=== PATIENT | male | born 1970 | race Two or more races ===

== ENCOUNTER 2025-03-14 06:54 | Inpatient (IN) | payer SELFPAY ==
[2025-03-14] VITALS (29 sets, daily range): BP systolic 81–113; BP diastolic 46–83; PULSE 53–88; RESP 12–25; TEMP 36–37; O2SAT 91–97; BMI 36.3
--- NOTE | ~2025-03-14 | US_ITS ---
Examination: US abdomen complete Clinical History: Abnormal LFTs, ELEVATED CREATININE . Comparison: None Technique: Complete abdominal sonography Findings: Liver: Enlarged. Echogenic. No intrahepatic biliary ductal dilatation. Normal hepatopedal flow main portal vein. Hepatic veins bidirectional waveforms. Pericholecystic focal fatty sparing Common duct: Normal caliber, 5 mm. Gallbladder: Probable stones. Wall thickening. No pericholecystic fluid. Negative sonographic Bauer's sign. Spleen: Mildly enlarged. Pancreas: Obscured by bowel gas. Kidneys: Unremarkable. Aorta: No aneurysmal dilatation. Retrohepatic IVC: Unremarkable. IMPRESSION: 1. Nonspecific gallbladder wall thickening in the presence of gallstones but lack of Bauer's sign. If clinical ambiguity for cholecystitis, can consider HIDA scan. 2. Hepatomegaly, with steatosis. Reviewed, dictated and finalized at location R. FIC ENGINEER IMPRESSION: 1. Nonspecific gallbladder wall thickening in the presence of gallstones but l ack of Bauer's sign. If clinical ambiguity for cholecystitis, can consider HID A scan. 2. Hepatomegaly, with steatosis.
--- NOTE | ~2025-03-14 | XR_ITS ---
Examination: XR chest 1V portable Clinical History: STEMI Comparison: STEMI Technique: Portable AP Findings: Cardiomegaly. Diffuse airspace opacities right lung. No acute bony abnormality. IMPRESSION: 1. Right lung unilateral interstitial pulmonary edema and/or airspace disease. 2. Cardiomegaly. Reviewed, dictated and finalized at location R. LEVEL DESIGNER
--- NOTE | 2025-03-14 07:13 | ECG_ITS ---
Test Date: 2025-03-14 07:00:27 Measurements Intervals [place] Rate: 75 P: 213 MS: 222 QRS: -56 QRSD: 110 T: 113 QT: 421 QTc: 471 Interpretive Statements SINUS RHYTHM WITH SECOND DEGREE AV BLOCK, TYPE I INCOMPLETE RIGHT BUNDLE BRANCH BLOCK LEFT VENTRICULAR HYPERTROPHY AND ST-T CHANGE ANTEROLATERAL INFARCT, AGE INDETERMINATE INFERIOR ST ELEVTION IN INFERIOR LEADS- CONSIDER ACUTE INFARCT OR MYOCARDIAL ANEURYSM BASELINE ARTIFACT- I, II, AVR, AVL, V4-V6 ABNORMAL ECG No previous ECG available for comparison Electronically Signed On 03-14-2025 08:35:36 BUTCHER SUPERVISOR by Nhan Matson D.O.
[2025-03-14] MEDS: SODIUM CHLORIDE 0.9% IV 1,000 ML 999 ML (07:18)
--- NOTE | 2025-03-14 07:20 | PC.NURSE ---
patient received heparin bolus 5000 units, verbal order received from Gris NOVAK at bedside
[2025-03-14 07:21] LABS: Hematocrit 49.5 % (42.0-52.0); Hemoglobin 17.0 g/dL (14.0-18.0); Immature Granulocyte Percent A 0.4 % (0-0.5); Lymphocytes Absolute Auto 1.83 K/mm3 (0.9-3.2); Mean Corpuscular HGB Conc 34.3 g/dl (32-36); Mean Corpuscular Hemoglobin 32.1 pg (26-34); Mean Corpuscular Volume 93.4 fl (80-100); Nucleated Red Blood Cells Absolute Auto 0.000 K/mm3 (0.0-0.012); Nucleated Red Blood Cells Perc 0.0 % (0.0-0.2); Platelet Count Result 144 k/mm3 (150-375); Red Blood Count 5.30 M/mm3 (4.6-6.20); White Blood Count 13.6 K/mm3 (4.5-10.0)
[2025-03-14 07:38] LABS: Alanine Aminotransferase 83 U/L (6-50); Albumin Level 4.2 g/dL (3.5-5.1); Alkaline Phosphatase 76 U/L (38-126); Anion Gap 9 mmol/L (4-12); Aspartate Amino Transferase 231 U/L (17-59); Bilirubin,Total 2.1 mg/dL (0.2-1.3); Blood Urea Nitrogen 25 mg/dL (9-20); Calcium 8.9 mg/dL (8.4-10.2); Carbon Dioxide 24 mmol/L (22-30); Chloride 101 mmol/L (98-107); Estimated CRCL calculation 71 ml/min; Estimated Glomerular Filt Rate 57; Glucose 136 mg/dL (65-110); Potassium 3.7 mmol/L (3.4-5.0); Sodium 134 mmol/L (137-145); Total Protein 7.7 g/dL (6.3-8.2)
[2025-03-14 07:40] LABS: INR 1.2; Prothrombin Time 15.1 Seconds (11.1-14.7)
[2025-03-14 07:50] LABS: NT Pro B Type Natriuretic Pept 1600 pg/mL (19.9-100); Troponin I 33.200 ng/mL (0.000-0.034)
--- NOTE | 2025-03-14 07:51 | ED_ITS ---
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 denies having any shortness of breath. He is on aspirin therapy. Not quite sure with a has CAD. Initial report given by EMS that he had been seen in Hospital in [place] for [place]. patient however states that he has not been any hospital . MD complaint: chest pain Onset (ago): hour(s) (1) Timing of current episode: constant Onset: during rest Pain location: substernal Pain radiation: none Severity: moderate Quality: heaviness Relieving factors: nothing Exacerbating factors: nothing Treatment prior to arrival: none Risk Factors Coronary artery disease risk factors: none Related Data Allergies Allergy/AdvReac Type Severity Reaction Status Date / Time No Known Allergies Allergy Verified 03/14/25 07:08 Review of Systems 2 Review of Systems: All systems reviewed & are unremarkable except as noted in HPI and below Constitutional: Constitutional: Reports no additional constitutional complaints Eyes: Eyes: Reports no additional eye complaints ENT: Reports system reviewed and no additional complaints, except as documented Cardiovascular: Cardiovascular: Reports as per HPI Respiratory: Respiratory: Reports no additional respiratory complaints Gastrointestinal: Gastrointestinal: Reports no additional gastrointestinal complaints Musculoskeletal: Musculoskeletal: Reports no additional musculoskeletal complaints Neurologic: Reports system reviewed and no additional complaints, except as documented Exam 2 Narrative: GENERAL: Well-appearing, well-nourished, and in no acute distress. HEAD: Normocephalic, atraumatic. EYES: PERRLA and EOMI. ENT: Nares clear, no rhinorrhea or epistaxis. Mucous membranes moist. NECK: Supple. CHEST: Clear to auscultation. No respiratory distress. HEART: Regular rate and rhythm. No murmur heard. Normal peripheral pulses. ABDOMEN: Soft, nontender, nondistended, normal active bowel sounds. EXTREMITIES: Normal range of motion. No edema. SKIN: Warm, dry, no rash. NEURO: No focal deficits. Alert and oriented x3. PSYCH: Normal mood and affect. Course Course Emergency Course: soon after his arrival EKG was done showed acute inferior wall WA , research test engine operator was notified. Did give him IV fluids and heparin. Vital Signs Vital signs: Vital Signs Pulse Rate 88 03/14/25 07:08 Respiratory Rate 18 03/14/25 07:08 Blood Pressure 112/79 03/14/25 07:08 Pulse Oximetry 97 03/14/25 07:08 Pulse Rate 76 03/14/25 07:34 Respiratory Rate 20 03/14/25 07:34 Blood Pressure 113/79 03/14/25 07:34 Pulse Oximetry 97 03/14/25 07:34 MDM Differential Diagnosis Differential Diagnosis: WA Lab Data 03/14/25 07:15 03/14/25 07:15 Labs: Lab Results 03/14/25 Range/Units 07:15 WBC 13.6 H (4.5-10.0) K/mm3 RBC 5.30 (4.6-6.20) M/mm3 Hgb 17.0 (14.0-18.0) g/dL Hct 49.5 (42.0-52.0) % MCV 93.4 (80-100) fl MCH 32.1 (26-34) pg MCHC 34.3 (32-36) g/dl RDW 12.7 (11.5-14.5) % Plt Count 144 L (150-375) k/mm3 MPV 11.3 H (7.4-10.4) fl Immature Gran % (Auto) 0.4 (0-0.5) % Neut % (Auto) 75.0 H (45.5-73.1) % Lymph % (Auto) 13.4 L (18.3-44.2) % [place] % (Auto) 10.8 H (2.6-8.5) % Eos % (Auto) 0.1 (0-4.4) % Baso % (Auto) 0.3 (0.2-1.2) % Lymph # (Auto) 1.83 (0.9-3.2) K/mm3 [place] # (Auto) 1.5 H (0.1-0.6) K/mm3 Eos # (Auto) 0.0 (0-0.3) K/mm3 Baso # (Auto) 0.0 (0.0-0.1) K/mm3 Abs Immat Gran (auto) 0.05 H (0.00-0.031) K/mm3 Absolute Neuts (auto) 10.2 H (1.3-6.7) K/mm3 Absolute Nucleated RBC 0.000 (0.0-0.012) K/mm3 Nucleated RBC % 0.0 (0.0-0.2) % PT 15.1 H (11.1-14.7) Seconds INR 1.2 Sodium 134 L (137-145) mmol/L Potassium 3.7 (3.4-5.0) mmol/L Chloride 101 (98-107) mmol/L Carbon Dioxide 24 (22-30) mmol/L Anion Gap 9 (4-12) mmol/L BUN 25 H (9-20) mg/dL Creatinine 1.31 H (0.7-1.3) mg/dL Estim Creat Clear Calc 71 ml/min Estimated GFR 57 L (59 - ) Glucose 136 H (65-110) mg/dL Calcium 8.9 (8.4-10.2) mg/dL Total Bilirubin 2.1 H (0.2-1.3) mg/dL AST 231 H (17-59) U/L ALT 83 H (6-50) U/L Alkaline Phosphatase 76 (38-126) U/L Troponin I 33.200 H* (0.000-0.034) ng/mL NT-Pro-B Natriuret Pep 1600 H (19.9-100) pg/mL Total Protein 7.7 (6.3-8.2) g/dL Albumin 4.2 (3.5-5.1) g/dL ECG Data EKG #1: ECG completion date: 03/14/25 normal rate (76) and ST elevation (acute inferior wall ) Critical Care Time Critical Care Time Time Type: Continuous Initial evaluation, discuss w/ involved parties, attempting to gather old records: 10 minutes Documenting medical record: 10 minutes Review of results (EKG's, labs, imaging): 10 minutes Total Critical Care Time: 30 Discharge Plan Discharge Clinical Impression: ST elevation (STEMI) myocardial infarction Patient Disposition: Still a Patient Condition: Stable Patient Language: Nepali Follow-up/Referrals: PHYSICIAN,SENIOR TECHNOLOGIST [Primary Care Provider, Internal Medicine]
[2025-03-14] MEDS: EPTIFIBATIDE 0.75 MG/ML 75 MG/100 ML VIAL 18.06 MG IV CONT ×3 (10:25→19:05)
--- NOTE | 2025-03-14 10:25 | ADMGEN ---
This patient, Cony Winslow, was admitted to Intensive Care Unit-9 @ 1025. Patient/family oriented to hospital policies and general routines including ID bracelet, bed and alarms, visiting hours, pain management, procedures, bathroom and other care routines, personal items, smoking policy, room service/diet, and visiting hours. Information on how to activate the Rapid Response Team has been discussed. Patient/Family are encouraged to report perceived risks to care and to ask questions if they do not understand what they are told or what they should do.
--- NOTE | 2025-03-14 10:27 | WPDCARDPROC ---
Cardiac Cath Procedure Note Date of procedure:: 03/14/25 Performing physician:: Richa Redd MD Indication:: CATHETERIZATION LABORATORY REPORT Procedure Date: 03/14/2025 Anesthesia: Versed and Fentanyl were ordered and given in my presence at 07:57, procedure ended at 09:54. Supervision of nurse monitored moderate sedation with Versed and Fentanyl was provided for 117 minutes. Fentanyl 200mcg Versed 2mg Pre-op Diagnosis: Chest pain off and on since Saturday and constant since last night Inferior STEMI Post-op Diagnosis: Inferior STEMI s/p aspiration thrombectomy with Penumbra and IVUS guided PCI to proximal RCA with 3.0mm x 12mm, 3.0mm x 38mm, and 4.0mm x 15mm Medtronic Jose Luis Sebastian DAGOBERTO overlapping stents from distal to proximal post dilated with 4.0mm x 15mm NC balloon to high MAXIMO. Procedure(s): Left heart catheterization with coronary angiography PCI to proximal RCA Access Site: Right radial artery Brief History and Clinical Indications: All risks, benefits and alternatives to left heart catheterization with or without percutaneous coronary intervention was discussed at length with the patient. Risk of complications including but not limited to bleeding, infection, arrhythmia, stroke, worsening kidney function, blood loss, groin hematoma, limb loss, emergency coronary artery bypass grafting, and even were discussed with the patient and all questions were answered. The patient understood and wished to proceed. Time out called, patient name, date of , medical record number, allergies, procedure performed, identify [facility], patient and staff member concurred with accurate data, procedure carried on. Findings: LEFT HEART CATHETERIZATION FINDINGS: 1. Left main: The left main coronary artery is widely patent without any significant obstructive disease. 2. Left anterior descending: The LAD and the diagonal branches have mild luminal irregularities without any significant obstructive angiographic disease. 3. Left circumflex: The left circumflex artery and the main marginal branches have mild luminal irregularities without any significant obstructive angiographic disease. 4. Right coronary artery: The proximal RCA has 100%thrombotic stenosis with CARMEN 0 flow in the distal vessel. This is the culprit lesion for inferior STEMI. The distal vessel is seen filling on L injections indicating some collateral presence. 5. Left ventricle: A. End-diastolic pressure 16 mmHg. B. LV gram deferred. C. No significant gradient across aortic valve on catheter pullback. 6. Opening AO pressure 95/82/89 and closing AO pressure 112/88/81mm Hg. Description of Procedure: Informed consent signed and placed in the chart. Patient transferred to lift slab operator room. Prepped and draped in usual sterile fashion. 2% lidocaine injected subcutaneously in right wrist area. 22-gauge venipuncture catheter used to access the right radial artery with the Seldinger technique. 6-FR slender sheath placed in right radial artery. Nitroglycerin 200mcg and Heparin 5000U was given intraarterial through the sheath. J wire advanced under fluoroscopy 5F JL 3.5 diagnostic catheter engaged Left Main Coronary Artery. 6F JR4 guide catheter engaged Right Coronary Artery Multiple orthogonal angiogram obtained and reviewed 6F JR4 guide catheter crossed aortic valve to obtain LVEDP, LV angiogram deferred. Hemostasis was achieved by application of TR band. Procedure Description for PCI: Heparin was used for anticoagulation (ACT maintained above 250) Patient loaded with heparin at 70 units/kg. 6F JR 4guide catheter was used to intubate the RCA 0.014 Runthrough coronary wire was passed in to the distal RCA initially positioned in the distal RV marginal branch but was pushing the guide back A second Runthrough coronary wire was passed in to the distal RPL branch for increased guide support A 6F guideliner was advanced to the ostium of the RCA for increased guide support The lesion was pre-dilated with a 2.0mm x 15mm, 3.0mm x 15mm, and 3.5mm x 15mm compliant balloons inflated to high MAXIMO with only minimal return of distal flow A [employer] [place] IVUS catheter was advanced into the RCA to evaluate lesion characteristics and vessel size. This showed profuse thrombus in the proximal and mid RCA and diffused 70-80% stenosis in the mid and proximal RCA A Penumbra CAT RX catheter was advanced beyond the lesion and pulled back to aspirate clot. This was performed 4 times after which CARMEN II flow was noted in the distal RCA IV fluids were administered for hypotension with SBP to the 80s-90s range Intracoronary Integrilin bolus x 2 was administered and a drip was started Intracoronary epinephrine was administered for no reflow Intracoronary nipride 100mcg was administered for no reflow Further pre-dilations were performed again with 3.5mm x 15mm compliant balloon inflated to high MAXIMO A 3.0mm x 12mm, 3.0mm x 38mm, and 4.0mm x 15mm Medtronic [place] Sebastian DAGOBERTO overlapping stents were deployed from distal to proximal RCA The stent was post-dilated with a 4.0mm x 15mm NC balloon to high MAXIMO Intracoronary NTG was administered Patient was hypotensive to the 70s requiring 100mcg of Phenylephrine Follow-up angiograms showed an excellent result Coronary wire and guide-catheter were removed Pre-procedure - CARMEN 3 flow Post-procedure - CARMEN 3 flow No angiographic complications identified. Assessment: Inferior STEMI s/p aspiration thrombectomy with Penumbra and IVUS guided PCI to proximal RCA with 3.0mm x 12mm, 3.0mm x 38mm, and 4.0mm x 15mm Medtronic Jose Luis Sebastian DAGOBERTO overlapping stents from distal to proximal post dilated with 4.0mm x 15mm NC balloon to high MAXIMO. Hypotension treated with IV fluids and 1 dose of 100mcg phenylephrine Post Operative Condition: Stable No significant blood loss Disposition: ICU Plan: The patient will be monitored in the recovery area. Ticagrelor 180mg bolus administered in the lab. Continue DAPT with asa 81 mg daily and ticagrelor 90 mg BID for 1 year followed by ASA indefinitely. TTE Continue IV fluids and avoid hypotension Monitor on telemetry. Check and replace electrolytes to keep K>4 and Mg>2. Continue heparin and Integrilin after removal of TR band for 12 hours given profuse thrombus. The above findings were discussed with the ICU physician and referring ER physician. Continue aggressive medical therapy and risk factor modification.
--- NOTE | 2025-03-14 10:28 | P.CONIN_ITS ---
Assessment and Plan Assessment and plan (1) ST elevation (STEMI) myocardial infarction: Qualifiers: Involved coronary artery: other inferior wall coronary artery Qualified Code(s): I21.19 - ST elevation (STEMI) myocardial infarction involving other coronary artery of inferior wall Code(s): I21.3 - ST elevation (STEMI) myocardial infarction of unspecified site Status: Acute Assessment and Plan: Inferior STEMI status post PCI and stent placement in RCA Aspirin, statin Integrilin drip for now. Cardiology plans for start heparin drip once the TR band is off Check echo Telemetry monitoring (2) Hypotension: Code(s): I95.9 - Hypotension, unspecified Status: Acute Assessment and Plan: Patient blood pressure is soft on arrival to ICU. Considering he has inferior IL I will give him fluid bolus followed by IV fluid infusion Check echocardiogram Check lactic and procalcitonin level Check chest x-ray (3) Elevated serum creatinine: Code(s): R79.89 - Other specified abnormal findings of blood chemistry Status: Acute Assessment and Plan: Baseline creatinine unknown. This could be secondary to hypertension or patient has chronic baseline creatinine Monitor urine output electrolytes and creatinine Treatment of hypotension as above Check urine electrolytes and CK Check renal ultrasound (4) Abnormal LFTs: Code(s): R79.89 - Other specified abnormal findings of blood chemistry Status: Acute Assessment and Plan: AST elevation is likely secondary to IL. Mild elevation of ALT is also likely secondary to IL Monitor levels Check right upper quadrant ultrasound Plan DVT prophylaxis -heparin drip Nutrition -heart healthy diet Code Status - Full Code Patient does not have any biological children, is not and does not have any siblings or parents here in this country. He wants his friend Benjamin to be surrogate decision maker if he is unable to do so himself. Total Critical Care Time - 30 minutes Due to a high probability of clinically significant, life threatening deterioration, the patient required my highest level of preparedness to intervene emergently and I personally spent this critical care time directly and personally managing the patient. This critical care time included obtaining a history; examining the patient; pulse oximetry; ordering and review of studies; arranging urgent treatment with development of a management plan; evaluation of patient's response to treatment; frequent reassessment; and discussions with other providers. It was exclusive of separately billable procedures and treating other patients and teaching time. Please see Assessment and Plan section and the rest of the note for further information on patient assessment and treatment Superintendent [employer] Consult Note Consult date: 03/14/25 Reason for consult: STEMI HPI: Cony Winslow is a 55 year old male was brought to [place] ER by EMS from a truck stop with complaints of chest pain this morning. Chest pain started 1 hour prior to presentation. 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 Patient's states chest pain started 2 days ago. He took some rash in medication and aspirin and bent went away. Pain again came back yesterday evening and did not resolved till this morning hence he presented to the ER. Pain was Constant, started at rest, was in the middle of chest with radiation to jaw, 8/10 severe, heaviness in quality, no aggravating or relieving factors. No dizziness lightheadedness loss of consciousness. No palpitations no nausea vomiting. No hematochezia melena He states prior to that he was feeling fine had no other symptoms. All other systems are reviewed O-negative She workup in the ER showed EKG suggestive of inferior wall IL. patient was given IV fluids and heparin and Cardiology were consulted. Patient was taken to cardiac catheterization lab. Patient had 100% occluded RCA will and a stent was placed. Patient is now being admitted to ICU for further evaluation management. Additional workup showed WBC of 13.6 platelet 144 INR 1.2 creatinine 1.31 glucose 136 AST 231 ALT 83 troponin 33 BNP 1600 With regards to past medical history patient denies any known medical problems. He also denies any history of surgeries and does not report any significant family history. 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 Cardiac: RRR. Normal S1 S2. No murmurs Circulation: Pedal pulses are intact and symmetrical. Abdomen: Normal bowel sounds.. Soft. NT. ND. Extremities: Mild pitting edema, TR band on the right hand, decrease cap refill on the right hand, : Strickland in place Neurologic: Follows commands. Moves all 4 extremities PERRL AO x3 Skin: No Rash Results Labs 03/14/25 07:15 03/14/25 07:15 Labs: Short CBC 03/14/25 Range/Units 07:15 WBC 13.6 H (4.5-10.0) K/mm3 Hgb 17.0 (14.0-18.0) g/dL Hct 49.5 (42.0-52.0) % Plt Count 144 L (150-375) k/mm3 BMP 03/14/25 07:15 Sodium 134 L Potassium 3.7 Chloride 101 Carbon Dioxide 24 BUN 25 H Creatinine 1.31 H Glucose 136 H Calcium 8.9 Cardiac Enzymes 03/14/25 Range/Units 07:15 Troponin I 33.200 H* (0.000-0.034) ng/mL Liver Function 03/14/25 Range/Units 07:15 Total Bilirubin 2.1 H (0.2-1.3) mg/dL AST 231 H (17-59) U/L ALT 83 H (6-50) U/L Alkaline Phosphatase 76 (38-126) U/L Albumin 4.2 (3.5-5.1) g/dL Quality VTE Prophylaxis VTE prophylaxis: pharmacologic ordered
[2025-03-14] MEDS: LACTATED RINGERS 1,000 ML 999 ML IV CONT ×2 (10:31→12:37)
[2025-03-14] MEDS: LACTATED RINGERS 1,000 ML 100 ML IV CONT ×2 (10:38→20:11)
--- NOTE | 2025-03-14 10:55 | PM.IMHP2 ---
H&P: HPI History of Present Illness Date/Time: 03/14/25 10:55 Chief Complaint: Chest pain Narrative: 55 y/o male with no significant past medical history presented with CC of chest pain since Saturday. He reports left sided off and on chest pain that started 4 days ago. He describes the pain as a pressure with some radiation to the left arm and jaw. Pain is associated with some SOB. No dizziness, LH, palpitations, leg swelling, recent weight gain, pre syncope, or syncope. Troponin is elevated. EKG showed ST elevations in inferior leads with reciprocal ST depressions. Cardiology consulted for Inferior STEMI. He was taken to the laboratory equipment cleaner emergently for PPCI. He underwent aspiration thrombectomy with Penumbra and IVUS guided PCI to proximal RCA with 3.0mm x 12mm, 3.0mm x 38mm, and 4.0mm x 15mm Medtronic Jose Luis [place] DAGOBERTO overlapping stents from distal to proximal post dilated with 4.0mm x 15mm NC balloon to high MAXIMO. Post procedure he is transferred to the ICU for close monitoring. Review of Systems Review of Systems: A complete review of systems was not performed due to emergent nature of the proceure. 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 Meds Home Medications and Allergies Allergies Allergy/AdvReac Type Severity Reaction Status Date / Time No Known Allergies Allergy Verified 03/14/25 07:08 Vital Signs Vital Signs - 24 hr 03/14/25 07:08 03/14/25 07:08 03/14/25 07:16 Pulse Rate 88 79 Respiratory Rate 18 18 18 Blood Pressure 112/79 112/79 110/76 Pulse Oximetry 97 97 95 03/14/25 07:24 03/14/25 07:24 03/14/25 07:34 Pulse Rate 87 77 76 Respiratory Rate 22 H 20 Blood Pressure 112/74 113/79 Pulse Oximetry 95 97 Exam Narrative: General: Alert oriented x3, no acute distress Neck: Supple, no JVD Chest: Bilaterally clear to auscultation, no rales or rhonchi Cardiac: S1, S2 +, regular rate, regular rhythm, no murmurs or rubs Extremities: No pedal edema, no skin rash Neurologic: Alert and oriented x3, no focal neurological deficits Results Labs Labs: Short CBC 03/14/25 Range/Units 07:15 WBC 13.6 H (4.5-10.0) K/mm3 Hgb 17.0 (14.0-18.0) g/dL Hct 49.5 (42.0-52.0) % Plt Count 144 L (150-375) k/mm3 BMP 03/14/25 07:15 Sodium 134 L Potassium 3.7 Chloride 101 Carbon Dioxide 24 BUN 25 H Creatinine 1.31 H Glucose 136 H Calcium 8.9 Cardiac Enzymes 03/14/25 Range/Units 07:15 Troponin I 33.200 H* (0.000-0.034) ng/mL Liver Function 03/14/25 Range/Units 07:15 Total Bilirubin 2.1 H (0.2-1.3) mg/dL AST 231 H (17-59) U/L ALT 83 H (6-50) U/L Alkaline Phosphatase 76 (38-126) U/L Albumin 4.2 (3.5-5.1) g/dL Critical Care Time Critical Care Time Time Type: Continuous Assessment and Plan Assessment and plan (1) ST elevation (STEMI) myocardial infarction: Qualifiers: Involved coronary artery: other inferior wall coronary artery Qualified Code(s): I21.19 - ST elevation (STEMI) myocardial infarction involving other coronary artery of inferior wall Code(s): I21.3 - ST elevation (STEMI) myocardial infarction of unspecified site Status: Acute (2) Hypotension: Code(s): I95.9 - Hypotension, unspecified Status: Acute Plan 55 y/o male with -Inferior STEMI s/p aspiration thrombectomy with Penumbra and IVUS guided PCI to proximal RCA with 3.0mm x 12mm, 3.0mm x 38mm, and 4.0mm x 15mm Medtronic Jose Luis [place] DAGOBERTO overlapping stents from distal to proximal post dilated with 4.0mm x 15mm NC balloon to high MAXIMO. -SOB: acute heart failure? - elevated NT pro BNP -Hypotension treated with IV fluids and 1 dose of 100mcg phenylephrine -Thrombocytopenia- plt 144k -Renal failure with creatinine 1.3- unknown if acute vs chronic as no prior records available Plan: Ticagrelor 180mg bolus administered in the lab. Continue DAPT with asa 81 mg daily and ticagrelor 90 mg BID for 1 year followed by ASA indefinitely. Atorvastatin 80 mg daily No BB given hypotension Check FLP TTE Obtain CXR Monitor renal function and cbc Continue IV fluids and maintain MAP>60 Monitor on telemetry Check and replace electrolytes to keep K>4 and Mg>2 Continue heparin and Integrilin after removal of TR band for 12 hours given profuse thrombus Continue aggressive medical therapy and risk factor modification
[2025-03-14 11:03] LABS: Cholesterol 162 mg/dL (0-200); HDL Direct 28 mg/dL; Triglycerides 160 mg/dL (<150)
[2025-03-14 11:47] LABS: Creatine Kinase 607 U/L (55-170)
[2025-03-14] MEDS: MORPHINE SULFATE (*CRX) 4 MG/ML INJ 2 MG IV PUSH (11:58)
[2025-03-14 12:42] LABS: Procalcitonin 0.5 ng/mL
[2025-03-14 13:17] LABS: MRSA (PCR) NOT DETECTED (NOT DETECTE)
[2025-03-14] MEDS: HEPARIN SOD/D5W 100 UNITS/ML 25,000 UNITS/250 ML BAG 10 UNITS IV CONT (16:08)
[2025-03-14] MEDS: TICAGRELOR 90 MG TABLET PO (20:07)
[2025-03-14] MEDS: DOCUSATE SODIUM 100 MG CAPSULE PO (20:07)
[2025-03-14] MEDS: HYDROcodone/acetaminophen (*CRX) 5-325 MG TABLET 1 TAB PO (20:11)
[2025-03-14 21:23] LABS: Hematocrit 50.2 % (42.0-52.0); Hemoglobin 16.7 g/dL (14.0-18.0); Immature Granulocyte Percent A 0.7 % (0-0.5); Immature Platelet Fraction Pct 7.8 % (0.9-11.2); Lymphocytes Absolute Auto 1.73 K/mm3 (0.9-3.2); Mean Corpuscular HGB Conc 33.3 g/dl (32-36); Mean Corpuscular Hemoglobin 32.1 pg (26-34); Mean Corpuscular Volume 96.4 fl (80-100); Nucleated Red Blood Cells Absolute Auto 0.000 K/mm3 (0.0-0.012); Nucleated Red Blood Cells Perc 0.0 % (0.0-0.2); Platelet Count Result 138 k/mm3 (150-375); Red Blood Count 5.21 M/mm3 (4.6-6.20); White Blood Count 12.5 K/mm3 (4.5-10.0)
[2025-03-14 21:38] LABS: INR 1.4; Prothrombin Time 16.9 Seconds (11.1-14.7)
[2025-03-14 21:39] LABS: Partial Thromboplastin Time 30.3 Seconds (22.3-36.8)
[2025-03-15] VITALS (12 sets, daily range): BP systolic 81–100; BP diastolic 64–74; PULSE 52–65; RESP 12–21; TEMP 36.5–37.1; O2SAT 90–95
--- NOTE | 2025-03-15 | ECHO_ITS ---
Patient Info Name: Cony Winslow Age: 55 years : 1970 Gender: Male Ht: 68 in Wt: 238 lbs BSA: 2.32 m2 BP: 90 / 70 mmHg Exam Date: 03/15/2025 8:16 AM Patient Status: I Admit Date: 03/14/2025 Exam Type: CA echo dop color flow w con Staff Referring Physician: Elfego Kwan MD Attending Provider: Stepan Luna MD Summary 1. The left ventricle is normal size with moderately reduced systolic function. There is concentric left ventricular remodeling. The left ventricular ejection fraction is visually estimated to be 35-40%. The inferior and anteroseptal gr are hypokinetic. 2. The right ventricle is mildly dilated with reduced systolic function. 3. There are no significant valvular abnormalities. Left Ventricle The left ventricle is normal size with moderately reduced systolic function. There is concentric left ventricular remodeling. The left ventricular ejection fraction is visually estimated to be 35-40%. The inferior and anteroseptal gr are hypokinetic. Right Ventricle The right ventricle is mildly dilated with reduced systolic function. Left Atria The left atrium is normal size. Right Atria The right atrium is normal size. Atrial Septum The atrial septum is normal. Aortic Valve The aortic valve is trileaflet and opens well. There is no aortic regurgitation. Pulmonic Valve The pulmonic valve is not well visualized. Mitral Valve The mitral valve is normal. There is trace mitral regurgitation. Tricuspid Valve The tricuspid valve is normal. There is trace tricuspid regurgitation. Pericardium/Pleural Pericardium is normal in appearance with no evidence for significant pericardial effusion. Inferior Vena Cava Normal inferior vena cava with <50% collapse upon inspiration consistent with elevated right atrial pressure, 8 mmHg. Aorta The aortic root is not well visualized. Left Ventricular Outflow Tract Name Value Normal LVOT 2D LVOT Diameter 2.0 cm LVOT Doppler LVOT Peak Velocity 78 cm/s LVOT Peak Gradient 2 mmHg LVOT Mean Gradient 1 mmHg LVOT VTI 11 cm LVOT VTI/AV VTI Ratio 0.9 LVOT Stroke Volume 37 ml LVOT CO 2.2 l/min LVOT CI 0.9 l/min/m2 Pulmonic Valve Name Value Normal RVOT Doppler RVOT Peak Velocity 33 cm/s RVOT Peak Gradient 0 mmHg PV Doppler PV Peak Velocity 47 cm/s PV Peak Gradient 1 mmHg Mitral Valve Name Value Normal MV Diastolic Function MV E Peak Velocity 42 cm/s MV A Peak Velocity 37 cm/s MV E/A 1.1 MV Decel Time (PW) 145 ms MV Annular TDI MV E/e' (Septal) 10.2 MV E/e' (Lateral) 8.4 MV E/e' (Average) 9.3 Tricuspid Valve Name Value Normal TV Regurgitation Doppler TR Peak Velocity 149 cm/s TR Peak Gradient 9 mmHg Estimated PAP/RSVP RA Pressure 8 mmHg <=5 PA Systolic Pressure 17 mmHg <36 RV Systolic Pressure 17 mmHg <36 TV Annular TDI TV Lateral Lilli s' Velocity 3.1 cm/s >=9.5 Aorta Name Value Normal Ascending Aorta Ao Root Diameter (MM) 3.7 cm Ao Root Diam Index (MM) 1.6 cm/m2 Aortic Valve Name Value Normal AV Doppler AV Peak Velocity 84 cm/s AV Peak Gradient 3 mmHg AV Mean Gradient 2 mmHg AV VTI 13 cm AV Area (Cont Eq VTI) 2.8 cm2 >=3.0 AV Area (Cont Eq Haroldo) 3.0 cm2 AV DI (Haroldo) 0.93 AV Regurgitation 2D LVOT Area 3.2 cm2 Ventricles Name Value Normal LV Dimensions 2D/MM IVS Diastolic Thickness (2D) 1.2 cm 0.6-1.0 LVID Diastole (2D) 4.0 cm 4.2-5.8 LVIW Diastolic Thickness (2D) 1.2 cm 0.6-1.0 LVID Systole (2D) 3.6 cm 2.5-4.0 LVOT Diameter 2.0 cm LV Mass (2D Cubed) 167.97 g 88.00-224.00 LV Mass Index (2D Cubed) 72 g/m2 49-115 Relative Wall Thickness (2D) 0.58 <=0.42 LV Fractional Shortening/Ejection Fraction 2D/MM LV Fractional Shortening (2D) 11 % 25-43 LV EF (2D Teichholz) 24 % LV Diastolic Volume (4C MOD) 61 ml LV EF (4C MOD) 25 % LV Diastolic Volume (2C MOD) 67 ml LV EF (2C MOD) 30 % LV Diastolic Volume (BP MOD) 66 ml 62-150 LV Diastolic Volume Index (BP MOD) 29 ml/m2 34-74 LV Systolic Volume (BP MOD) 47 ml 21-61 LV Systolic Volume Index (BP MOD) 20 ml/m2 11-31 LV EF (BP MOD) 30 % 52-72 LV Diastolic Length (4C) 8.3 cm LV Systolic Length (4C) 8.0 cm LV Stroke Volume (4C MOD) 16 ml Atria Name Value Normal LA Dimensions LA Dimension (MM) 3.9 cm 3.0-4.0 LA Volume (4C A-L) 36 ml LA Volume (BP A-L) 46 ml RA Dimensions RA Area (4C) 24.7 cm2 <=18.0 Report Signatures
[2025-03-15] MEDS: EPTIFIBATIDE 0.75 MG/ML 75 MG/100 ML VIAL 18.06 MG IV CONT ×2 (00:39→06:06)
[2025-03-15 03:13] LABS: Hematocrit 46.1 % (42.0-52.0); Hemoglobin 15.6 g/dL (14.0-18.0); Immature Granulocyte Percent A 0.6 % (0-0.5); Lymphocytes Absolute Auto 2.20 K/mm3 (0.9-3.2); Mean Corpuscular HGB Conc 33.8 g/dl (32-36); Mean Corpuscular Hemoglobin 31.9 pg (26-34); Mean Corpuscular Volume 94.3 fl (80-100); Nucleated Red Blood Cells Absolute Auto 0.000 K/mm3 (0.0-0.012); Nucleated Red Blood Cells Perc 0.0 % (0.0-0.2); Platelet Count Result 142 k/mm3 (150-375); Red Blood Count 4.89 M/mm3 (4.6-6.20); White Blood Count 12.0 K/mm3 (4.5-10.0)
[2025-03-15 03:24] LABS: Alanine Aminotransferase 80 U/L (6-50); Albumin Level 3.4 g/dL (3.5-5.1); Alkaline Phosphatase 56 U/L (38-126); Anion Gap 11 mmol/L (4-12); Aspartate Amino Transferase 149 U/L (17-59); Bilirubin,Total 2.3 mg/dL (0.2-1.3); Blood Urea Nitrogen 40 mg/dL (9-20); Calcium 8.0 mg/dL (8.4-10.2); Carbon Dioxide 18 mmol/L (22-30); Chloride 103 mmol/L (98-107); Estimated CRCL calculation 36 ml/min; Estimated Glomerular Filt Rate 26; Glucose 117 mg/dL (65-110); Magnesium 1.8 mg/dL (1.6-2.3); Potassium 4.4 mmol/L (3.4-5.0); Sodium 132 mmol/L (137-145); Total Protein 6.3 g/dL (6.3-8.2)
[2025-03-15 03:25] LABS: Partial Thromboplastin Time 60.7 Seconds (22.3-36.8)
[2025-03-15] MEDS: LACTATED RINGERS 1,000 ML 100 ML IV CONT (07:19)
[2025-03-15] MEDS: PERFLUTREN LIPID MICROSPHERES 1.5 ML VIAL DILUTED TO 10 ML TOTAL VOLUME IV PUSH (08:00)
[2025-03-15] MEDS: LACTATED RINGERS 500 ML 999 ML IV CONT (08:49)
[2025-03-15] MEDS: DOCUSATE SODIUM 100 MG CAPSULE PO (08:50)
[2025-03-15] MEDS: TICAGRELOR 90 MG TABLET PO (08:51)
[2025-03-15] MEDS: ATORVASTATIN 40 MG TABLET 80 MG PO (08:51)
[2025-03-15] MEDS: ASPIRIN 81 MG ENTERIC TABLET PO (08:51)
--- NOTE | 2025-03-15 09:11 | IVDEFINITY ---
Prior to administration of IV Definity the patient was educated on the risks and benefits of the imaging enhancing agent including potential adverse side effects. The patient verbalized understanding. Allergies were verified. No exclusion criteria were identified and at least one of the following inclusion criteria were met: 1) physician request, 2) patient technically difficult to image (per the [place] [employer] Echocardi[employer] guidelines of two or more segments not discernable within the apical view), or 3) questionable left ventricular function. ?
--- NOTE | 2025-03-15 10:33 | PC.NURSE ---
Pt is wanting to leave AMA. Pt has removed finger pulse ox and blood pressure cuff. unable to monitor O2 sats or blood pressure at this time. Tele leads remain on.
--- NOTE | 2025-03-15 11:05 | PM.PNCARD ---
Progress Note: A&P Assessment and Plan (1) Hypotension: Code(s): I95.9 - Hypotension, unspecified Status: Acute (2) ST elevation (STEMI) myocardial infarction: Qualifiers: Involved coronary artery: other inferior wall coronary artery Qualified Code(s): I21.19 - ST elevation (STEMI) myocardial infarction involving other coronary artery of inferior wall Code(s): I21.3 - ST elevation (STEMI) myocardial infarction of unspecified site Status: Acute (3) Acute kidney injury: Code(s): N17.9 - Acute kidney failure, unspecified Status: Acute Plan 55-year-old man with hypertension and active tobacco abuse presented with chest discomfort whose clinical presentation was concerning for late presenting inferior ST-elevation FL Late presentation inferior ST-elevation FL -he is unable to afford Brilinta -he is unwilling to stay in the hospital for further monitoring and is signing out against medical advise -we have discussed with him the importance of dual anti-platelet therapy and is in the process of ensuring are meds to bed Services is able to provide him with non cost prohibitive aspirin 81 mg p.o. daily and Plavix 75 mg p.o. daily both of which a 90 day supply as well as atorvastatin 80 mg every evening also 90 days supply -I have also provided him with a paper script for Plavix 75 mg 90 day supply with 3 refills -I have also discussed with him in great detail his vascular access and that it is critical to allow for proper rest and healing prior to utilizing his right arm/hand -have also discussed with him signs and symptoms to be aware of that should prompt immediate attention via emergency room visit regarding his vascular axis, coronary artery disease, and biventricular heart failure Acute Biventricular heart failure -I have discussed with him the setting of renal injury and likely new onset biventricular heart failure, he should remain in the hospital for optimal medical management and optimization of his health and heart failure as well as coronary artery disease prior to being discharge -interpreters service was provided by via [employer] #[id number] and after discussing in detail, patient expressed understanding and all questions were answered and patient still has decided that he will need to sign out against medical advice given the livelihood of his job -he is rather hypotensive at this time and would recommend holding his home lisinopril with close follow-up in clinic should he leave against medical advise Hypertension -is now hypotensive likely from his RV infarct -would avoid antihypertensives at this time Subjective Date/time seen: 03/15/25 11:05 Interval history: He states that he no longer is having any chest discomfort. He also acknowledges that his shortness of breath is resolving. Denies any pain or swelling in his right wrist. Review of Systems Cardiovascular: Cardiovascular: Reports as per HPI Respiratory: Respiratory: Reports as per HPI Exam Const: General: comfortable HENMT: Mouth: Yes moist mucous membranes Eyes: EOM: EOMs intact bilaterally Neck: Neck: no JVD Resp: Effort & Inspection: normal respiratory effort Auscultation: diminished lung sounds Cardio: Rate: bradycardic Rhythm: regular rhythm Heart sounds: no gallops and no murmurs Extrem: Other: Right wrist with no hematoma or tenderness Objective Data Vital Signs Vital Signs: Vital Signs - 24 hr 03/14/25 11:15 03/14/25 11:30 03/14/25 11:45 Temperature Pulse Rate 77 78 77 Respiratory Rate 23 H 20 13 Blood Pressure 111/83 104/81 100/68 Pulse Oximetry 96 93 95 Oxygen Delivery Oxygen Flow Rate 03/14/25 12:00 03/14/25 12:00 03/14/25 12:00 Temperature 36.0 C L Pulse Rate 76 75 Respiratory Rate 12 Blood Pressure 94/46 L Pulse Oximetry 91 95 Oxygen Delivery Nasal Cannula Oxygen Flow Rate 2 03/14/25 12:15 03/14/25 12:45 03/14/25 13:14 Temperature Pulse Rate 76 76 72 Respiratory Rate 21 H 22 H 22 H Blood Pressure 111/80 107/77 99/68 L Pulse Oximetry 94 92 92 Oxygen Delivery Oxygen Flow Rate 03/14/25 13:45 03/14/25 14:00 03/14/25 14:30 Temperature Pulse Rate 72 72 70 Respiratory Rate 23 H 20 Blood Pressure 99/67 L 94/72 L Pulse Oximetry 94 95 Oxygen Delivery Oxygen Flow Rate 03/14/25 14:45 03/14/25 15:00 03/14/25 15:45 Temperature Pulse Rate 68 65 66 Respiratory Rate 19 21 H 23 H Blood Pressure 98/68 L 93/60 L 95/61 L Pulse Oximetry 95 95 96 Oxygen Delivery Oxygen Flow Rate 03/14/25 16:00 03/14/25 16:00 03/14/25 16:00 Temperature Pulse Rate 60 61 Respiratory Rate 23 H Blood Pressure 84/66 L Pulse Oximetry 95 96 Oxygen Delivery Nasal Cannula Oxygen Flow Rate 2 03/14/25 16:45 03/14/25 17:00 03/14/25 18:00 Temperature 36.7 C 36.9 C Pulse Rate 60 62 58 L Respiratory Rate 22 H 21 H Blood Pressure 82/70 L 81/64 L Pulse Oximetry 92 92 Oxygen Delivery Oxygen Flow Rate 03/14/25 18:00 03/14/25 19:00 03/14/25 20:00 Temperature 37.0 C Pulse Rate 58 L 57 L 62 Respiratory Rate 21 H 24 H 17 Blood Pressure 84/70 L 93/51 L 93/74 L Pulse Oximetry 95 92 94 Oxygen Delivery Oxygen Flow Rate 03/14/25 20:00 03/14/25 20:25 03/14/25 21:00 Temperature Pulse Rate 59 L 62 54 L Respiratory Rate 17 23 H Blood Pressure 98/74 L Pulse Oximetry 94 92 Oxygen Delivery Nasal Cannula Oxygen Flow Rate 2 03/14/25 22:00 03/14/25 22:00 03/14/25 23:00 Temperature Pulse Rate 53 L 53 L 55 L Respiratory Rate 21 H 21 H Blood Pressure 90/63 L 89/70 L Pulse Oximetry 92 94 Oxygen Delivery Oxygen Flow Rate 03/15/25 00:00 03/15/25 00:00 03/15/25 00:00 Temperature 36.9 C Pulse Rate 56 L 57 L 57 L Respiratory Rate 20 21 H Blood Pressure 96/71 L Pulse Oximetry 91 93 Oxygen Delivery Nasal Cannula Oxygen Flow Rate 2 03/15/25 01:00 03/15/25 02:00 03/15/25 02:00 Temperature Pulse Rate 56 L 61 61 Respiratory Rate 15 12 Blood Pressure 94/69 L 94/73 L Pulse Oximetry 91 94 Oxygen Delivery Oxygen Flow Rate 03/15/25 03:00 03/15/25 04:00 03/15/25 04:00 Temperature 37.1 C Pulse Rate 57 L 60 56 L Respiratory Rate 15 15 Blood Pressure 100/73 92/74 L Pulse Oximetry 93 92 Oxygen Delivery Oxygen Flow Rate 03/15/25 04:40 03/15/25 05:00 03/15/25 06:00 Temperature Pulse Rate 60 56 L 62 Respiratory Rate 15 20 Blood Pressure 91/64 L Pulse Oximetry 92 93 Oxygen Delivery Nasal Cannula Oxygen Flow Rate 2 03/15/25 06:00 03/15/25 07:00 03/15/25 08:00 Temperature 36.5 C Pulse Rate 65 57 L 52 L Respiratory Rate 15 17 19 Blood Pressure 90/70 L 93/73 L 81/71 L Pulse Oximetry 95 94 90 Oxygen Delivery Oxygen Flow Rate 03/15/25 08:00 03/15/25 09:00 03/15/25 10:00 Temperature Pulse Rate 56 L 55 L 58 L Respiratory Rate 19 Blood Pressure 88/74 L Pulse Oximetry 90 Oxygen Delivery Oxygen Flow Rate 03/15/25 10:00 Temperature Pulse Rate 54 L Respiratory Rate 18 Blood Pressure Pulse Oximetry Oxygen Delivery Oxygen Flow Rate Intake/Output Intake/Output: Intake & Output 03/12/25 03/13/25 03/14/25 03/15/25 23:59 23:59 23:59 23:59 Intake Total 2211.5 2286.8 Output Total 175 Balance 2211.5 2111.8 Meds/Results Medications: Active Medications Generic Name Dose Route Start Last Admin Trade Name Freq PRN Reason Stop Dose Admin Hydrocodone Bitart/Acetaminophen 1 tab 03/14/25 12:53 03/14/25 20:11 Hydrocodone/Acetaminophen (*Crx) 5-325 Mg Tablet PO 1 tab Q4H PRN Administration Pain Rated 4-6 Aspirin 81 mg 03/15/25 09:00 03/15/25 08:51 Aspirin 81 Mg Enteric Tablet PO 81 mg QAM LUIS ANGEL Administration Atorvastatin Calcium 80 mg 03/15/25 09:00 03/15/25 08:51 Atorvastatin 40 Mg Tablet PO 80 mg DAILY LUIS ANGEL Administration Docusate Sodium 100 mg 03/14/25 21:00 03/15/25 08:50 Docusate Sodium 100 Mg Capsule PO 100 mg Q12HR LUIS ANGEL Administration Lactated Ringer's 1,000 mls @ 100 mls/hr 03/14/25 10:30 03/15/25 07:19 Lr - Lactated Ringers Iv IV CONT 100 mls/hr .Q10H LUIS ANGEL Administration Morphine Sulfate 2 mg 03/14/25 12:53 Morphine Sulfate (*Crx) 4 Mg/Ml Inj IV PUSH Q2H PRN Pain Rated 7-10 Polyethylene Glycol 17 gm 03/14/25 16:59 Polyethylene Glycol 3350 17 Gm Powd.Pack PO QAM PRN Constipation Ticagrelor 90 mg 03/14/25 21:00 03/15/25 08:51 Ticagrelor 90 Mg Tablet PO 90 mg Q12HR LUIS ANGEL Administration Radiology Results: ITS Impressions Chest X-Ray 03/14/25 11:24 IMPRESSION: 1. Right lung unilateral interstitial pulmonary edema and/or airspace disease. 2. Cardiomegaly. Abdomen Ultrasound 03/14/25 13:44 IMPRESSION: 1. Nonspecific gallbladder wall thickening in the presence of gallstones but lack of Bauer's sign. If clinical ambiguity for cholecystitis, can consider HIDA scan. 2. Hepatomegaly, with steatosis. Labs Labs: Laboratory Results - last 24 hr 03/14/25 03/14/25 03/14/25 07:15 11:23 11:56 WBC RBC Hgb Hct MCV MCH MCHC RDW Plt Count MPV Immature Gran % (Auto) Neut % (Auto) Lymph % (Auto) Pender % (Auto) Eos % (Auto) Baso % (Auto) Lymph # (Auto) Pender # (Auto) Eos # (Auto) Baso # (Auto) Abs Immat Gran (auto) Absolute Neuts (auto) Absolute Nucleated RBC Nucleated RBC % % Immature Plt Fraction PT INR APTT Sodium Potassium Chloride Carbon Dioxide Anion Gap BUN Creatinine Estim Creat Clear Calc Estimated GFR Glucose Lactic Acid 1.7 Calcium Magnesium Total Bilirubin AST ALT Alkaline Phosphatase Total Creatine Kinase 607 H Total Protein Albumin LDL Cholesterol Direct 96 Procalcitonin 0.5 Ur Random Sodium Urine Creatinine Nasal MRSA (PCR) Not detected 03/14/25 03/14/25 03/15/25 13:07 21:16 03:06 WBC 12.5 H RBC 5.21 Hgb 16.7 Hct 50.2 MCV 96.4 MCH 32.1 MCHC 33.3 RDW 12.9 Plt Count 138 L MPV 11.3 H Immature Gran % (Auto) 0.7 H Neut % (Auto) 75.6 H Lymph % (Auto) 13.9 L Pender % (Auto) 9.6 H Eos % (Auto) 0.0 Baso % (Auto) 0.2 Lymph # (Auto) 1.73 Pender # (Auto) 1.2 H Eos # (Auto) 0.0 Baso # (Auto) 0.0 Abs Immat Gran (auto) 0.09 H Absolute Neuts (auto) 9.4 H Absolute Nucleated RBC 0.000 Nucleated RBC % 0.0 % Immature Plt Fraction 7.8 PT 16.9 H INR 1.4 APTT 30.3 60.7 H Sodium Potassium Chloride Carbon Dioxide Anion Gap BUN Creatinine Estim Creat Clear Calc Estimated GFR Glucose Lactic Acid Calcium Magnesium Total Bilirubin AST ALT Alkaline Phosphatase Total Creatine Kinase Total Protein Albumin LDL Cholesterol Direct Procalcitonin Ur Random Sodium < 5 Urine Creatinine 199.9 Nasal MRSA (PCR) 03/15/25 03:07 WBC 12.0 H RBC 4.89 Hgb 15.6 Hct 46.1 MCV 94.3 MCH 31.9 MCHC 33.8 RDW 12.9 Plt Count 142 L MPV 11.3 H Immature Gran % (Auto) 0.6 H Neut % (Auto) 69.3 Lymph % (Auto) 18.3 Pender % (Auto) 11.4 H Eos % (Auto) 0.1 Baso % (Auto) 0.3 Lymph # (Auto) 2.20 Pender # (Auto) 1.4 H Eos # (Auto) 0.0 Baso # (Auto) 0.0 Abs Immat Gran (auto) 0.07 H Absolute Neuts (auto) 8.3 H Absolute Nucleated RBC 0.000 Nucleated RBC % 0.0 % Immature Plt Fraction PT INR APTT Sodium 132 L Potassium 4.4 Chloride 103 Carbon Dioxide 18 L Anion Gap 11 BUN 40 H D Creatinine 2.61 H Estim Creat Clear Calc 36 Estimated GFR 26 L Glucose 117 H Lactic Acid Calcium 8.0 L Magnesium 1.8 Total Bilirubin 2.3 H AST 149 H ALT 80 H Alkaline Phosphatase 56 Total Creatine Kinase Total Protein 6.3 Albumin 3.4 L LDL Cholesterol Direct Procalcitonin Ur Random Sodium Urine Creatinine Nasal MRSA (PCR)
--- NOTE | 2025-03-15 11:10 | WPDINTPN2 ---
Assessment and Plan Assessment and Plan (1) ST elevation (STEMI) myocardial infarction: Qualifiers: Involved coronary artery: other inferior wall coronary artery Qualified Code(s): I21.19 - ST elevation (STEMI) myocardial infarction involving other coronary artery of inferior wall Code(s): I21.3 - ST elevation (STEMI) myocardial infarction of unspecified site Status: Acute Assessment and Plan: Inferior STEMI status post PCI and stent placement in RCA Aspirin, statin. Holding beta-marck MICAH-inhibitor due to soft blood pressure Discontinue heparin i an Integrilin drip. Brilinta Echo is being done right now and result pending Telemetry monitoring (2) Hypotension: Code(s): I95.9 - Hypotension, unspecified Status: Acute Assessment and Plan: Patient blood pressure is soft on arrival to ICU. Considering he has inferior MN patient was given 1 L fluid bolus followed by IV fluid infusion which led to improvement in blood pressure Overnight his blood pressure remains soft I have ordered additional 500 mL LR bolus and will continue with IV fluids Echocardiogram is being done and I suspect cardiomyopathy His lactic was normal and and procalcitonin level was low Chest x-ray suggested pulmonary edema (3) Acute kidney injury: Code(s): N17.9 - Acute kidney failure, unspecified Status: Acute Assessment and Plan: Baseline creatinine unknown but patient presented with elevated creatinine of 1.3. Patient does have history of hypertension and was supposed to be on lisinopril which he has not taken many months. This could be secondary to hypotension. Patient also received contrast Will give additional fluid bolus. Continue IV fluids CK 607 Renal ultrasound shows kidneys to be unremarkable Monitor urine output electrolytes and creatinine Treatment of hypotension as above Nephrology consult is planned if patient stays in the hospital-see below (4) Abnormal LFTs: Code(s): R79.89 - Other specified abnormal findings of blood chemistry Status: Acute Assessment and Plan: AST elevation is likely secondary to MN. Mild elevation of ALT is also likely secondary to MN Patient also appears to have hepatomegaly with fatty liver Ultrasound shows 1. Nonspecific gallbladder wall thickening in the presence of gallstones but lack of Bauer's sign. If clinical ambiguity for cholecystitis, can consider HIDA scan. 2. Hepatomegaly, with steatosis. No right upper quadrant tenderness. Patient was informed of the results and recommended to follow-up for further evaluation the for cholecystectomy in future Plan DVT prophylaxis -patient was on heparin drip which will be discontinue Nutrition -heart healthy diet is ordered Code Status - Full Code During my meeting with the patient this morning he emphasized that he would like to be discharged. I explained him the patient is not stable at this point for discharge. I explained him that he had a massive heart attack and has acute kidney injury along with soft blood pressure. He also has echo pending and is currently on heparin and Integrilin infusion which we were planning to discontinue today and start him on p.o. dual antiplatelet therapy. 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 He told me that if he is unable to make the delivery in time he will lose his business. He states that he does not have anyone in this area can drive his truck or make the delivery on his behalf. He told me that he is not and does not have any biological children. He also does not have any siblings or parents. He has a friend who can help him but unfortunately cannot make a delivery for him. I explained him that if the only option for him to leave would be against medical advice and I would strongly encourage him not doing that. I told him that he is critically ill with high risk of decompensation from a cardiac standpoint which may lead to hypotension, passing out loss of consciousness, arrhythmia and even . He states that he does not care and wants to go home. He requested multiple times to me and nursing staff to take all the leads and IVs out so he can leave. He states he is willing to sign any paperwork. He also told me that he does not have any insurance. I explained him that he has to take dual antiplatelet therapy which includes aspirin and a 2nd antiplatelet agent. He states that he does not take any other medication apart from aspirin. I spoke to patient at least 3 times in different in stance and tried to explain to him to stay in the hospital but he would not listen. Patient was alert oriented x3 and fully oriented and his thinking. He continued to repeat that he will lose his business and he does not care if he dies because he cannot take that loss. Patient's nurse spoke to multiple times. I also had charge nurse explained to the patient. Although patient has a good Divehi and does speaking [place] accent we also employed a spanish medical interpreter to make sure the patient understood the importance of staying in the hospital. He again confirmed that he is not going to stay in the hospital. I spoke to Dr. Delatorre with Cardiology whose primary regarding patient's desire to leave and see if we can give him prescriptions. I also discussed hearing care practitioner to told me that he may be able to afford a generic Plavix which is much cheaper than Brilinta. He states that he may think about getting the medications. Dr. Delatorre had a lengthy discussion again with the patient and explained him all the risks. Patient again was adamant that he does not on a stay but was willing to take the prescriptions. He is going to give him paper prescriptions. We again emphasized the importance of taking both antiplatelet drugs to keep the stent open and explained him that if he does not take both antiplatelet medications as prescribed, there is a high risk stent closing down leading to repeat heart attack and . At this point we have done all we can to try to explain to him the risks of leaving as medical advice which includes recurrent heart attack, loss of consciousness, dizziness, syncope, fall, but patient is adamant at this time and is not open to any further discussion. I have spoken to multiple times.. Patient's own nurse Otilio, charge nurse Heather, hearing care practitioner Ainsley and Dr. Delatorre also met with him and explained him all the risks but patient is adamant and is not open to any further discussion. He told staff that he has a friend who is going to ordered a would prefer him to take it for the hospital to his truck I have also explained to and warned him to him should not be driving a truck in his current situation and condition. It is not safe for him or for the other people on the road and can lead to a motor vehicle crash. I also told him that if he wants to come back to the hospital he is always welcome to come back to ER or go to any other hospital if he feels sick. Total Critical Care Time - 60 minutes Due to a high probability of clinically significant, life threatening deterioration, the patient required my highest level of preparedness to intervene emergently and I personally spent this critical care time directly and personally managing the patient. This critical care time included obtaining a history; examining the patient; pulse oximetry; ordering and review of studies; arranging urgent treatment with development of a management plan; evaluation of patient's response to treatment; frequent reassessment; and discussions with other providers. It was exclusive of separately billable procedures and treating other patients and teaching time. Please see Assessment and Plan section and the rest of the note for further information on patient assessment and treatment Subjective Date/time seen: 03/15/25 Overnight events reviewed. Patient continues to Integrilin and heparin infusion. He states his pain has resolved with the most part. He has occasional mild pain when he takes deep breath but no resting pain and the current pain is different and corrected quality. He denies any shortness a breath. He states he slept well. Patient denies fever, shortness of breath, cough, nausea vomiting, abdominal pain,, diarrhea, headache or constipation. Overnight his blood pressure has remained soft urine output was low After this discussion patient states that he would like to be discharged. I explained him that he is not ready to be discharged. He then said that he would like to leave and he does not care about further treatment. Please refer to further discussion below Review of Systems Review of Systems: All systems reviewed & are unremarkable except as noted in HPI and below (HPI) Exam Narrative: General: Pt is alert awake and in NAD Lungs/Chest: Trachea central Clear BS B/L, No crackles or wheezing. Cardiac: RRR. Normal S1 S2. No murmurs Circulation: Pedal pulses are intact and symmetrical. Abdomen: Normal bowel sounds.. Soft. NT. ND. No right upper quadrant tenderness Extremities: Mild pitting edema, bandage on the right hand cup, good cap refill on the right hand. : Strickland in place Neurologic: Follows commands. Moves all 4 extremities PERRL AO x3 Skin: No Rash Objective Data Vital Signs Vital Signs: Vital Signs - 24 hr 03/14/25 11:15 03/14/25 11:30 03/14/25 11:45 Temperature Pulse Rate 77 78 77 Respiratory Rate 23 H 20 13 Blood Pressure 111/83 104/81 100/68 Pulse Oximetry 96 93 95 Oxygen Delivery Oxygen Flow Rate 03/14/25 12:00 03/14/25 12:00 03/14/25 12:00 Temperature 36.0 C L Pulse Rate 76 75 Respiratory Rate 12 Blood Pressure 94/46 L Pulse Oximetry 91 95 Oxygen Delivery Nasal Cannula Oxygen Flow Rate 2 03/14/25 12:15 03/14/25 12:45 03/14/25 13:14 Temperature Pulse Rate 76 76 72 Respiratory Rate 21 H 22 H 22 H Blood Pressure 111/80 107/77 99/68 L Pulse Oximetry 94 92 92 Oxygen Delivery Oxygen Flow Rate 03/14/25 13:45 03/14/25 14:00 03/14/25 14:30 Temperature Pulse Rate 72 72 70 Respiratory Rate 23 H 20 Blood Pressure 99/67 L 94/72 L Pulse Oximetry 94 95 Oxygen Delivery Oxygen Flow Rate 03/14/25 14:45 03/14/25 15:00 03/14/25 15:45 Temperature Pulse Rate 68 65 66 Respiratory Rate 19 21 H 23 H Blood Pressure 98/68 L 93/60 L 95/61 L Pulse Oximetry 95 95 96 Oxygen Delivery Oxygen Flow Rate 03/14/25 16:00 03/14/25 16:00 03/14/25 16:00 Temperature Pulse Rate 60 61 Respiratory Rate 23 H Blood Pressure 84/66 L Pulse Oximetry 95 96 Oxygen Delivery Nasal Cannula Oxygen Flow Rate 2 03/14/25 16:45 03/14/25 17:00 03/14/25 18:00 Temperature 36.7 C 36.9 C Pulse Rate 60 62 58 L Respiratory Rate 22 H 21 H Blood Pressure 82/70 L 81/64 L Pulse Oximetry 92 92 Oxygen Delivery Oxygen Flow Rate 03/14/25 18:00 03/14/25 19:00 03/14/25 20:00 Temperature 37.0 C Pulse Rate 58 L 57 L 62 Respiratory Rate 21 H 24 H 17 Blood Pressure 84/70 L 93/51 L 93/74 L Pulse Oximetry 95 92 94 Oxygen Delivery Oxygen Flow Rate 03/14/25 20:00 03/14/25 20:25 03/14/25 21:00 Temperature Pulse Rate 59 L 62 54 L Respiratory Rate 17 23 H Blood Pressure 98/74 L Pulse Oximetry 94 92 Oxygen Delivery Nasal Cannula Oxygen Flow Rate 2 03/14/25 22:00 03/14/25 22:00 03/14/25 23:00 Temperature Pulse Rate 53 L 53 L 55 L Respiratory Rate 21 H 21 H Blood Pressure 90/63 L 89/70 L Pulse Oximetry 92 94 Oxygen Delivery Oxygen Flow Rate 03/15/25 00:00 03/15/25 00:00 03/15/25 00:00 Temperature 36.9 C Pulse Rate 56 L 57 L 57 L Respiratory Rate 20 21 H Blood Pressure 96/71 L Pulse Oximetry 91 93 Oxygen Delivery Nasal Cannula Oxygen Flow Rate 2 03/15/25 01:00 03/15/25 02:00 03/15/25 02:00 Temperature Pulse Rate 56 L 61 61 Respiratory Rate 15 12 Blood Pressure 94/69 L 94/73 L Pulse Oximetry 91 94 Oxygen Delivery Oxygen Flow Rate 03/15/25 03:00 03/15/25 04:00 03/15/25 04:00 Temperature 37.1 C Pulse Rate 57 L 60 56 L Respiratory Rate 15 15 Blood Pressure 100/73 92/74 L Pulse Oximetry 93 92 Oxygen Delivery Oxygen Flow Rate 03/15/25 04:40 03/15/25 05:00 03/15/25 06:00 Temperature Pulse Rate 60 56 L 62 Respiratory Rate 15 20 Blood Pressure 91/64 L Pulse Oximetry 92 93 Oxygen Delivery Nasal Cannula Oxygen Flow Rate 2 03/15/25 06:00 03/15/25 07:00 03/15/25 08:00 Temperature 36.5 C Pulse Rate 65 57 L 52 L Respiratory Rate 15 17 19 Blood Pressure 90/70 L 93/73 L 81/71 L Pulse Oximetry 95 94 90 Oxygen Delivery Oxygen Flow Rate 03/15/25 08:00 03/15/25 09:00 03/15/25 10:00 Temperature Pulse Rate 56 L 55 L 58 L Respiratory Rate 19 Blood Pressure 88/74 L Pulse Oximetry 90 Oxygen Delivery Oxygen Flow Rate 03/15/25 10:00 Temperature Pulse Rate 54 L Respiratory Rate 18 Blood Pressure Pulse Oximetry Oxygen Delivery Oxygen Flow Rate Intake/Output Intake/Output: Intake & Output 03/12/25 03/13/25 03/14/25 03/15/25 23:59 23:59 23:59 23:59 Intake Total 2211.5 2286.8 Output Total 175 Balance 2211.5 2111.8 Meds/Results Medications: Active Medications Generic Name Dose Route Start Last Admin Trade Name Freq PRN Reason Stop Dose Admin Hydrocodone Bitart/Acetaminophen 1 tab 03/14/25 12:53 03/14/25 20:11 Hydrocodone/Acetaminophen (*Crx) 5-325 Mg Tablet PO 1 tab Q4H PRN Administration Pain Rated 4-6 Aspirin 81 mg 03/15/25 09:00 03/15/25 08:51 Aspirin 81 Mg Enteric Tablet PO 81 mg QAM LUIS ANGEL Administration Atorvastatin Calcium 80 mg 03/15/25 09:00 03/15/25 08:51 Atorvastatin 40 Mg Tablet PO 80 mg DAILY LUIS ANGEL Administration Docusate Sodium 100 mg 03/14/25 21:00 03/15/25 08:50 Docusate Sodium 100 Mg Capsule PO 100 mg Q12HR LUIS ANGEL Administration Lactated Ringer's 1,000 mls @ 100 mls/hr 03/14/25 10:30 03/15/25 07:19 Lr - Lactated Ringers Iv IV CONT 100 mls/hr .Q10H LUIS ANGEL Administration Morphine Sulfate 2 mg 03/14/25 12:53 Morphine Sulfate (*Crx) 4 Mg/Ml Inj IV PUSH Q2H PRN Pain Rated 7-10 Polyethylene Glycol 17 gm 03/14/25 16:59 Polyethylene Glycol 3350 17 Gm Powd.Pack PO QAM PRN Constipation Ticagrelor 90 mg 03/14/25 21:00 03/15/25 08:51 Ticagrelor 90 Mg Tablet PO 90 mg Q12HR LUIS ANGEL Administration Radiology Results: ITS Impressions Chest X-Ray 03/14/25 11:24 IMPRESSION: 1. Right lung unilateral interstitial pulmonary edema and/or airspace disease. 2. Cardiomegaly. Abdomen Ultrasound 03/14/25 13:44 IMPRESSION: 1. Nonspecific gallbladder wall thickening in the presence of gallstones but lack of Bauer's sign. If clinical ambiguity for cholecystitis, can consider HIDA scan. 2. Hepatomegaly, with steatosis. Labs Labs: Laboratory Results - last 24 hr 03/14/25 03/14/25 03/14/25 07:15 11:23 11:56 WBC RBC Hgb Hct MCV MCH MCHC RDW Plt Count MPV Immature Gran % (Auto) Neut % (Auto) Lymph % (Auto) [place] % (Auto) Eos % (Auto) Baso % (Auto) Lymph # (Auto) [place] # (Auto) Eos # (Auto) Baso # (Auto) Abs Immat Gran (auto) Absolute Neuts (auto) Absolute Nucleated RBC Nucleated RBC % % Immature Plt Fraction PT INR APTT Sodium Potassium Chloride Carbon Dioxide Anion Gap BUN Creatinine Estim Creat Clear Calc Estimated GFR Glucose Lactic Acid 1.7 Calcium Magnesium Total Bilirubin AST ALT Alkaline Phosphatase Total Creatine Kinase 607 H Total Protein Albumin LDL Cholesterol Direct 96 Procalcitonin 0.5 Ur Random Sodium Urine Creatinine Nasal MRSA (PCR) Not detected 03/14/25 03/14/25 03/15/25 13:07 21:16 03:06 WBC 12.5 H RBC 5.21 Hgb 16.7 Hct 50.2 MCV 96.4 MCH 32.1 MCHC 33.3 RDW 12.9 Plt Count 138 L MPV 11.3 H Immature Gran % (Auto) 0.7 H Neut % (Auto) 75.6 H Lymph % (Auto) 13.9 L [place] % (Auto) 9.6 H Eos % (Auto) 0.0 Baso % (Auto) 0.2 Lymph # (Auto) 1.73 [place] # (Auto) 1.2 H Eos # (Auto) 0.0 Baso # (Auto) 0.0 Abs Immat Gran (auto) 0.09 H Absolute Neuts (auto) 9.4 H Absolute Nucleated RBC 0.000 Nucleated RBC % 0.0 % Immature Plt Fraction 7.8 PT 16.9 H INR 1.4 APTT 30.3 60.7 H Sodium Potassium Chloride Carbon Dioxide Anion Gap BUN Creatinine Estim Creat Clear Calc Estimated GFR Glucose Lactic Acid Calcium Magnesium Total Bilirubin AST ALT Alkaline Phosphatase Total Creatine Kinase Total Protein Albumin LDL Cholesterol Direct Procalcitonin Ur Random Sodium < 5 Urine Creatinine 199.9 Nasal MRSA (PCR) 03/15/25 03:07 WBC 12.0 H RBC 4.89 Hgb 15.6 Hct 46.1 MCV 94.3 MCH 31.9 MCHC 33.8 RDW 12.9 Plt Count 142 L MPV 11.3 H Immature Gran % (Auto) 0.6 H Neut % (Auto) 69.3 Lymph % (Auto) 18.3 [place] % (Auto) 11.4 H Eos % (Auto) 0.1 Baso % (Auto) 0.3 Lymph # (Auto) 2.20 [place] # (Auto) 1.4 H Eos # (Auto) 0.0 Baso # (Auto) 0.0 Abs Immat Gran (auto) 0.07 H Absolute Neuts (auto) 8.3 H Absolute Nucleated RBC 0.000 Nucleated RBC % 0.0 % Immature Plt Fraction PT INR APTT Sodium 132 L Potassium 4.4 Chloride 103 Carbon Dioxide 18 L Anion Gap 11 BUN 40 H D Creatinine 2.61 H Estim Creat Clear Calc 36 Estimated GFR 26 L Glucose 117 H Lactic Acid Calcium 8.0 L Magnesium 1.8 Total Bilirubin 2.3 H AST 149 H ALT 80 H Alkaline Phosphatase 56 Total Creatine Kinase Total Protein 6.3 Albumin 3.4 L LDL Cholesterol Direct Procalcitonin Ur Random Sodium Urine Creatinine Nasal MRSA (PCR) Quality VTE Prophylaxis VTE prophylaxis: pharmacologic ordered
--- NOTE | 2025-03-15 11:30 | PC.NURSE ---
At beginning of shift patient expressed interest in wanting to leave. Dr. Kwan spoke with patient in great lengths about the benefits of staying for treatment and the risks of leaving AMA. Pt verbalizes understanding of all risks associated with leaving AMA, including the possibility of . Dr. Delatorre (cardiology) spoke with patient using the [employer] mathematician services in [place] to ensure patients full understanding of the risks of leaving. psychological stress evaluator Heather spoke with patient using [employer] in [place] to ensure full understanding. [facility] address printed out and sent with patient. 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 Dr Delatorre filled out paper prescription for patient. Paper RX form was handed to patient. AMA paper work filled out by this RN, patient, and Dr Kwan.
== END 2025-03-15 11:56 | disposition left against medical advice (07) | DRG 174 ==
LOC: ANHED 08:04 → ANHICU 13:30
PROVIDERS: Admitting Provider Internal Medicine Interventional Cardiology; Emergency Provider Family Medicine; Visit Provider Internal Medicine
PROC: 4A023N7 Measurement of Cardiac Sampling and Pressure, Left Heart, Percutaneous Approach (ICD-10-PCS; CPT 93452; principal; 2025-03-14 07:20)
PROC: 4A023N7 Measurement of Cardiac Sampling and Pressure, Left Heart, Percutaneous Approach (ICD-10-PCS; 2025-03-14 07:20)
PROC: 027034Z Dilation of Coronary Artery, One Artery with Drug-eluting Intraluminal Device, Percutaneous Approach (ICD-10-PCS; CPT 92928; 2025-03-14 07:20)
DX: I21.11 ST elevation (STEMI) myocardial infarction involving right coronary artery (principal); I25.10 Atherosclerotic heart disease of native coronary artery without angina pectoris; I95.89 Other hypotension; I50.82 Biventricular heart failure; N17.8 Other acute kidney failure; K76.0 Fatty (change of) liver, not elsewhere classified; R16.0 Hepatomegaly, not elsewhere classified; Z79.82 Long term (current) use of aspirin; F17.210 Nicotine dependence, cigarettes, uncomplicated
CPT/HCPCS: 36415; 71045; 76700; 80053; 80061; 82550; 82570; 83605; 83735; 83880; 84145; 84300; 84484; 85025; 85055; 85610; 85730; 87641; 92978; 93005; 93458; 99291; A9270; C1725; C1753; C1757; C1769; C1874; C1887; C1894; C8929; C9606; J0166; J0168; J1327; J1644; J2003; J2250; J2270; J2305; J2371; J2405; J3010; J7030; J7040; J7050; J7120; Q9957